=== PATIENT | male | born 1995 | race Caucasian/White ===

== ENCOUNTER → 2016-11-23 | Outpatient (CLI) | payer OTHER ==
--- NOTE | 2016-11-23 09:24 | CT ---
EXAMINATION TYPE: CT soft tissue neck w con DATE OF EXAM: 11/23/2016 9:11 AM COMPARISON: NONE HISTORY: Left parotid swelling CT DLP: 314.00 mGycm Automated exposure control for dose reduction was used. CONTRAST: CT scan of the neck is performed following with IV Contrast, patient injected with 100 ml mL of Omnip aque 300. Axial images are obtained, coronal and sagittal reformatted images are reviewed. FINDINGS: The parotid and submandibular glands have a symmetric and normal appearance with no evidence of mass. There is slightly asymmetric enhancement along the inferior margin of the left parotid gland which m ay been the basis of mild inflammation of the parotid gland. Vasculature enhances normally. Thyroid gland has a normal appearance. There is shotty lymph nodes seen within the carotid space bilaterally. No pathologic adenopathy. Oropharynx and nasopharynx symmetric. Vocal cords have a normal appearance. Lung apices clear. Osseou s structures intact. IMPRESSION: 1. Slightly Asymmetric enhancement along the inferior pole of the left parotid gland may be on the ba sis of mild parotiditis. No calcification or enhancing mass. 2. Shotty adenopathy with no pathologic adenopathy.
== END | disposition home or self-care (01) ==
LOC: RADCTMAIN 08:36
PROVIDERS: ATTEND Otolaryngology
DX: R59.0 Localized enlarged lymph nodes (principal)
CPT/HCPCS: 70491; Q9967